=== PATIENT | female | born 1965 | race Two or more races ===

== ENCOUNTER 2019-04-26 12:02 | Emergency (ER) | payer SELFPAY ==
[~2019-04-26] VITALS: Ht 157.5 cm; Wt 61.2 kg
[2019-04-26 14:45] VITALS: BP 132/70
[2019-04-26] MEDS ORDERED: DexAMETHasone SOD PHOS 10MG/1ML VIAL INJ IM ONE (14:45)
[2019-04-26] MEDS ORDERED: diphenhdrAMINE HCL 50 MG/1 ML VL IM ONE ×2 (14:45)
== END 2019-04-26 15:25 | disposition home or self-care (01) ==
LOC: EDBD 12:02 → ER 12:02
DX: B86 Scabies (principal)
CPT/HCPCS: 96372; 99283; J1100; J1200

== ENCOUNTER 2019-05-06 12:42 | Emergency (ER) | payer OTHER ==
[~2019-05-06] VITALS: Ht 157.5 cm; Wt 68.0 kg
[2019-05-06 14:04] VITALS: BP 142/90
== END 2019-05-06 15:07 | disposition home or self-care (01) ==
LOC: ER 12:44
DX: L30.9 Dermatitis, unspecified (principal)